=== PATIENT | male | born 1985 | race Two or more races ===

== ENCOUNTER 2022-03-24 15:15 | Emergency (ER) | payer SELFPAY ==
[~2022-03-24] VITALS: Ht 154.9 cm; Wt 72.6 kg
[2022-03-24] MEDS ORDERED: HYDR50CA PO (16:52)
[2022-03-24] MEDS ORDERED: NAPR500T31 PO (16:53)
[2022-03-24 16:55] VITALS: BP 117/74
== END 2022-03-24 17:19 | disposition home or self-care (01) ==
LOC: ER 15:36
DX: G44.209 Tension-type headache, unspecified, not intractable (principal); E78.5 Hyperlipidemia, unspecified
CPT/HCPCS: 70450